=== PATIENT | female | born 1935 | race Hispanic/Latino ===

== ENCOUNTER 2020-06-06 04:49 | Emergency (ER) | payer MEDICARE, OTHER ==
[~2020-06-06] VITALS: Ht 149.9 cm; Wt 59.9 kg
[~2020-06-06 04:49] MED LIST: Z.0.AMIODARONE HCL20 PO; Z.0.ASPIRIN325 MG PO; Z.0.GLIPIZIDE10 MG PO; Z.0.LASIX80 MG PO; Z.0.LEVOTHROID50 MCG PO; Z.0.LISINOPRIL2.5 MG PO; Z.0.NEURONTIN300 MG PO; Z.0.NITROSTAT0.4 MG SL; Z.0.ZOCOR20 MG PO; [UNRECOGNIZED DRUG - OTHER] PO
--- NOTE | 2020-06-06 05:24 | Emergency Department Note ---
History of Present Illnes History of Present Illness Chief Complaint: General Medicine Complaints History of Present Illness This is a 84 year old female arrives to the ED requesting a general medical checkup. Patient states she just left [place]- patient arrived by EMS. 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 Patient does speak Yi as well. 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 Any updates have been documented here. Past Medical History Recent Fever: No Clinical Suspicion of Infectio: No New/Unexplained Change in Ment: No Past Medical History: CAD, Hyperlipedemia Other Medical History: high cholesterol, cad Past Surgical History: CABG, Back Surgery Other Surgery: TRIPLE BYPASS 1996..BACK SURGERY Social History Smoking Cessation: Never Smoker Counseling Performed: No Other Last Tetanus: unknown Review of Systems Review of Systems Constitutional: Reports no symptoms EENTM: Reports no symptoms Cardiovascular: Reports no symptoms Respiratory: Reports no symptoms Gastrointestinal: Reports no symptoms Genitourinary: Reports no symptoms Musculoskeletal: Reports no symptoms Integumentary: Reports no symptoms Neurological: Reports no symptoms Psychological: Reports no symptoms Endocrine: Reports no symptoms Hematological/Lymphatic: Reports no symptoms Physical Exam Related Data Allergies: Coded Allergies: Egg (Verified Allergy, 02/23/12) Penicillins (Verified Allergy, 02/22/12) Triage Vital Signs Vital Signs Date Time Temp Pulse Resp B/P (MAP) Pulse Ox O2 Delivery O2 Flow Rate FiO2 06/06/20 04:53 97.6 83 17 135/64 100 Room Air Vital signs reviewed: Yes Physical Exam CONSTITUTIONAL Constitutional: Present well-developed, Present well-nourished HENT HENT: Present normocephalic, Present atraumatic, Present oropharynx clear/moist, Present nose normal HENT L/R: Present left ext ear normal, Present right ext ear normal EYES Eyes: Reports PERRL, Reports conjunctivae normal NECK Neck: Present ROM normal PULMONARY Pulmonary: Present effort normal, Present breath sounds normal CARDIOVASCULAR Cardiovascular: Present regular rhythm, Present heart sounds normal, Present capillary refill normal, Present normal rate GASTROINTESTINAL Abdominal: Present soft, Present nontender, Present bowel sounds normal GENITOURINARY Genitourinary: Present exam deferred SKIN Skin: Present warm, Present dry MUSCULOSKELETAL Musculoskeletal: Present ROM normal NEUROLOGICAL Neurological: Present alert, Present oriented x 3, Present no gross motor or sensory deficits PSYCHOLOGICAL Psychological: Present mood/affect normal Procedures 12 Lead ECG Interpretation ECG Interpretation : ECG: ECG 1 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 Patient is awake alert oriented to person place and time, requesting to leave. No indications for further ER workup at this time. Assessment & Plan Final Impression: (1) General medical exam Depart Disposition: HOME, SELF-CARE Last Vital Signs Date Time Temp Pulse Resp B/P (MAP) Pulse Ox O2 Delivery O2 Flow Rate FiO2 06/06/20 04:53 97.6 83 17 135/64 100 Room Air Home Meds Reported Medications Gabapentin (Neurontin) 300 Mg Capsule, 300 MG PO BID 02/22/12 Simvastatin (Zocor) 20 Mg Tablet, 20 MG PO HS 02/22/12 Potassium Chloride (Epiklor) 20 Meq Packet, 20 MEQ PO DAILY 02/22/12 Nitroglycerin (Nitrostat) 0.4 Mg Tab.subl, 0.4 MG SL DIRECTED 02/22/12 Lisinopril (Lisinopril) 2.5 Mg Tablet, 2.5 MG PO DAILY 02/22/12 Levothyroxine Sodium (Levothroid) 50 Mcg Tablet, 50 MCG PO DAILY 02/22/12 Glipizide (Glipizide) 10 Mg Tablet, 10 MG PO EVERY 12 HRS 02/22/12 Furosemide (Lasix) 80 Mg Tablet, 80 MG PO BID, 0 Refills 02/22/12 Aspirin (Aspirin) 325 Mg Tablet, 325 MG PO DAILY 02/22/12 Amiodarone Hcl (Amiodarone Hcl) 200 Mg Tablet, 200 MG PO DAILY 02/22/12 ELVIRA MARTINEZ DO Jun 06, 2020 05:24
== END 2020-06-06 07:45 | disposition home or self-care (01) ==
LOC: ER 05:15
DX: Z00.00 Encounter for general adult medical examination without abnormal findings (principal); I25.10 Atherosclerotic heart disease of native coronary artery without angina pectoris; E78.5 Hyperlipidemia, unspecified; E78.00 Pure hypercholesterolemia, unspecified; Z95.1 Presence of aortocoronary bypass graft
CPT/HCPCS: 93005; 99282